=== PATIENT | male | born 1985 | race Caucasian/White ===

== ENCOUNTER 2019-05-05 08:28 | Emergency (ER) | payer SELFPAY ==
[2019-05-05 08:38] VITALS: BP 141/71; PULSE 104; RESP 22; TEMP 37.2; O2SAT 98
--- NOTE | 2019-05-05 09:02 | ED.GENADUL_ITS ---
Discharge Plan Disposition Patient Disposition: HOME Condition: Improving Discharge Details Chief Complaint: Abd Prob Clinical Impression: Abdominal muscle strain Primary Care Provider: Denisse Boss ED Provider: Jenna Martin Home Meds and New Rx's Prescriptions: No Action No Known Home Meds RF: 0 Discharge Instructions Instructions: Muscle Strain (ED) Additional Instructions: Alternate Tylenol and Motrin as needed directed for pain. Alternate ice and heat to the affected area several times daily for 20 minutes at a time. Follow-up with your primary care doctor next week for reevaluation. Return to the emergency department if you develop any worsening or new concerning symptoms. Discharge Data Discharge Date/Time-TO BE ENTERED AT DEPARTURE: 05/05/19 10:13 Discharge Physician: Jenna Martin Medical Decision Making 33-year-old male who presents with left anterior lateral mid to lower abdominal and side pain since yesterday morning. Pain worse with movement, bending forward or when moving from sitting to standing position. No cauda equina symptoms. No fever, nausea, vomiting or urinary symptoms. Pain appears musculoskeletal. Patient states he was sent here by his employer for evaluation. He is hemodynamically stable. He appears nontoxic, laughing and talking with his in the room. He has left mid to lower abdomen/side pain that is tender to deep palpation. There is no rigidity, guarding, distention. No focal deficits. No CVA tenderness. No rash. Discussed with patient that this appears likely consistent with an abdominal wall muscle strain. He was offered lab work and imaging but declines at this time and would rather start with ibuprofen and if improves would rather go home and rest and return if worse. He requests work note. 0950 --patient feels much better and is requesting to go home. Patient is declining any additional work-up at this time. Patient is instructed to alternate ice and heat, Tylenol and Motrin and limit heavy lifting for the next 2 days. He is instructed to follow-up with his primary care doctor for reevaluation and to return here immediately if worse. Pt hemodynamically stable. RR listed incorrectly, respiratory rate within normal limits prior to discharge. HR and BP normal. Medical Records Medical records reviewed: Yes I reviewed the patient's medical records. HPI General Mode of arrival: ambulatory . Date/Time Provider Initiated Documentation: 05/05/19 08:45 . Limitations to Documentation: no limitations . Information obtained by: patient . HPI Narrative: Pt is a 33yo M who presents to the ED w/ a c/o L lower abdomen/side pain since yesterday morning. 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 Patient states the pain is worse when bending over and tying his shoes or any movement which he is bending or using his back. Patient denies any radiation of pain, leg weakness or numbness. He denies any bowel or bladder incontinence, saddle anesthesia, fever, chills, nausea, vomiting, dysuria, hematuria, urinary frequency. Patient took Tylenol last night and this morning without relief. Patient states he was at work this morning and was instructed to go home due to his symptoms and is here for evaluation. Patient states his pain is currently 5/10. Related Data Home Medications Medication Instructions Recorded Confirmed Unknown [No Known Home Meds] 04/26/13 01/07/17 Allergies Allergy/AdvReac Type Severity Reaction Status Date / Time No Known Allergies Allergy Unverified 01/07/17 10:33 General Stated Complaint: Abd Prob VALENTIN: 3 Review of Systems Review of Systems All systems reviewed & are unremarkable except as noted in HPI and below Constitutional Reports as per HPI, Denies chills and Denies fever(s) Eyes Denies blurry vision ENT Denies dizziness, Denies sore throat and Denies throat swelling Cardiovascular Denies chest pain and Denies dyspnea Respiratory Denies cough and Denies dyspnea Gastrointestinal Reports abdominal pain, Denies diarrhea and Denies vomiting Genitourinary Denies hematuria and Denies dysuria Musculoskeletal Reports back pain and Denies numbness Integumentary/Breasts Denies lesions and Denies rash Neurologic Denies dizziness, Denies focal weakness and Denies numbness Allergic/Immunologic Denies throat swelling [facility] Medical History No significant past medical history (Acute) Surgical History Excision, Lesion (01/07/17) Social History Smoking/Tobacco Use Status: Never Alcohol Intake: current Alcohol Intake frequency: a few times a month Drug use: Never Do you feel safe at home: Yes Do you feel safe in your relationship?: Yes Exam Const General: cooperative, healthy appearing and no acute distress HENMT Head: normal to inspection Face and sinus: normal facial exam Eyes General: appearance normal, both eyes and all related structures EOM: EOM intact bilaterally Neck Neck: normal visual inspection and No submandibular swelling Lymphatic: no lymphadenopathy noted Chest Chest: normal inspection of the chest and no tenderness Resp Effort & Inspection: normal respiratory effort and able to speak in complete sentences Auscultation: clear to auscultation bilaterally Cardio Rate: regular rate Rhythm: regular rhythm GI Inspection: normal to inspection Palpation: soft, not firm and not rigid Auscultation: normal bowel sounds Abdomen image: 1. Tenderness to palpation L anterolateral mid-lower abdomen with deep palpation. No rigidity, guarding, distension, rash, trauma. Back/Spine/Pelvis Back: no CVA tenderness Thoracic/Lumbar Spine: thoracic and lumbar spine normal to inspection Pelvis: no pain with anterior-posterior compression Skin General skin exam: no rashes or lesions noted Neuro General: alert, awake and oriented x3 Cognition: normal cognition Speech: speech normal Motor: muscle tone normal throughout and strength 5/5 throughout Sensory Exam: no sensory deficits noted DTR's: Rt Patellar: 1+, Lt Patellar: 1+, Rt Ankle: 1+ and Lt Ankle: 1+ Plantar Reflexes: Equivocal: bilateral (negative babinski b/l) Extrem General: normal to inspection, full ROM, normal capillary refill, no calf tenderness bilaterally and no edema Psych Appearance: grossly normal Mental Status: mental status grossly normal Speech and Movement: speech and movement normal Affect: normal affect Course Vital Signs Temperature 99.0 F 05/05/19 08:38 Pulse 104 H 05/05/19 08:38 Respiratory Rate 22 05/05/19 08:38 Blood Pressure 141/71 H 05/05/19 08:38 Pulse Oximetry 98 05/05/19 08:38 Temperature 99.0 F 05/05/19 08:38 Temperature Source Temporal Artery Scan 05/05/19 08:38 Pulse 104 H 05/05/19 08:38 Respiratory Rate 22 05/05/19 08:38 Respiratory Effort 05/05/19 08:38 Blood Pressure 141/71 H 05/05/19 08:38 Pulse Oximetry 98 05/05/19 08:38 Oxygen Delivery Method Room Air 05/05/19 08:38 Oxygen Flow Rate 0 05/05/19 08:38 Pain Level 5 05/05/19 08:50
[2019-05-05] MEDS: Ibuprofen 600 MG TAB PO (09:10)
[2019-05-05 10:09] VITALS: BP 122/70; PULSE 90; RESP 90; TEMP 37.2; O2SAT 96
== END 2019-05-05 10:13 | disposition home or self-care (01) ==
PROVIDERS: Emergency Provider Physician Assistant; PCP Nurse Practitioner Family
DX: S39.011A Strain of muscle, fascia and tendon of abdomen, initial encounter (principal); X58.XXXA Exposure to other specified factors, initial encounter
CPT/HCPCS: 99282